=== PATIENT | female | born 1990 | race Caucasian/White ===

== ENCOUNTER 2016-11-07 00:34 | Emergency (ER) | payer MEDICAID ==
--- NOTE | 2016-11-07 00:44 | ED Physician Chart ---
Chief Complaint/HPI - Patient Information Date Seen:: 11/07/16 Time Seen:: 00:42 Chief Complaint:: tooth pain History of Present Illness:: 26-year-old female complains of acute, worsening, constant, aching, nonradiating , left lower tooth pain 3 days. Has associated dental caries. Denies headache , acute vision changes, chest pain, palpitations, nausea, vomiting, diarrhea, fevers. Allergies:: Allergies Allergy/AdvReac Type Severity Reaction Status Date / Time lithium Allergy Verified 11/07/16 00:43 trazodone Allergy Verified 11/07/16 00:43 Historian:: Patient Review:: Nurse's Note Reviewed Review of Systems - Review of Systems Other: Complete system review otherwise unremarkable except as noted in history of present illness. Past Medical History - Past Medical History Past Medical History: No significant medical hx Family History: None Social History: Smoker, No Alcohol, No Drug Use, Other Surgical History: None Psychiatricy History: None Medication: None Family Medical History - Family Member Mother History Unknown: Yes Physical Exam - Physical Examination Other:: INITIAL VITAL SIGNS: Reviewed by me GENERAL: Alert and interactive. No acute distress HEAD: Head is normocephalic and atraumatic EYES: EOMI. PERRL. No scleral icterus. No conjunctival injection ENT: Left lower molars multiple dental caries and some inflamed gingiva. NECK: Supple. No masses. Full range of motion RESPIRATORY: No tachypnea. Clear breath sounds bilaterally. No wheezing, rales, or rhonchi CV: Regular rate and rhythm. No murmurs, rubs, or gallops ABDOMEN: Soft, non-distended, non-tender. No guarding. No rebound. No masses. EXTREMITIES: No deformity. No cyanosis. No edema. SKIN: Warm and dry. No obvious rashes. NEUROLOGIC: Alert and oriented. Face is symmetric. Speech is normal. Moves all extremities equally. Motor and sensory distally intact. Assessment - Assessment General Assessment: SMOKING CESSATION COUNSELING: I spent greater than 3 minutes at the bedside with the patient discussing the benefits of smoking cessation, including decreased risk of heart disease, lung cancer, and emphysema. We also discussed strategies for smoking cessation, including pharmaceutical options. The patient was also encouraged to follow up with the primary care physician for outpatient follow-up. ED Septic Shock - . Is Septic Shock (SBP<90, OR Lactate>4 mmol\L) present?: No Reassessment (Disposition) - Reassessment Reassessment:: This 90 acute dental pain. The site there is a abscess on the left lower molar. Prescribed antibiotics. Gave analgesics. Provided both prescriptions. Follow-up with PCP and dentist. Within one to 2 days. Return to ER precautions given. Patient understands and agrees the plan. Blood pressure was noted to be elevated over 120/80. There were no signs of hypertension. Discussed the findings with the patient and recommended that the patient follow up with the primary care physician regarding the elevated blood pressure. Reassessment Condition:: Improved - Diagnosis Diagnosis:: Acute dental pain due to dental abscess Elevated blood pressure without the diagnosis hypertension - Aftercare/Follow up Instructions Aftercare/Follow-Up Instructions:: Counseled pt regarding lab results/diagnosis & need follow up, Refer to Discharge Instructions Medication Prescribed:: Augmentin Ibuprofen - Patient Disposition Discharge/Transfer:: Home Time:: 00:50 Condition at Disposition:: Improved ED Discharge Plan - Patient Disposition Admit/Discharge/Transfer: PT DISCHARGED HOME Condition at Disposition: Improved Instructions: Dental Pain
[2016-11-07] MEDS ORDERED: Amoxicillin/Clavulanat 875/125 Tab PO ONE (00:45)
[2016-11-07] MEDS ORDERED: Amoxicillin/Clavulanat 875/125 Tab ONE (00:47)
== END 2016-11-07 01:00 | disposition home or self-care (01) ==
LOC: ER 00:34
DX: K04.7 Periapical abscess without sinus (principal); R03.0 Elevated blood-pressure reading, without diagnosis of hypertension; F17.200 Nicotine dependence, unspecified, uncomplicated; Z91.048 Other nonmedicinal substance allergy status; Z88.8 Allergy status to other drugs, medicaments and biological substances
CPT/HCPCS: Z7502; Z7610